=== PATIENT | female | born 1985 | race Caucasian/White ===

== ENCOUNTER 2022-03-18 11:01 | Day surgery (SDC) | payer MEDICAID ==
[~2022-03-18] VITALS: Ht 160 cm; Wt 68.2 kg
[2022-03-18] MEDS ORDERED: fentaNYL/PF 50MCG/1 ML 2ML syringe ONE (11:03)
[2022-03-18] MEDS ORDERED: MIDAZolam 1 MG/ML 5ML VIAL ONE (11:03)
[2022-03-18] MEDS ORDERED: LIDOcaine Viscous 15ml cup ONE ×2 (11:04→11:33)
[2022-03-18 11:14] VITALS: BP 135/87
[2022-03-18] MEDS ORDERED: ALB0.5UD (11:16)
[2022-03-18] MEDS ORDERED: LORA10TA7 PO (11:16)
[2022-03-18] MEDS ORDERED: ALBUTEROL (11:16)
[2022-03-18 12:01] VITALS: BP 123/84
[2022-03-18 12:11] VITALS: BP 127/76
[2022-03-18 12:21] VITALS: BP 140/89
[2022-03-18 12:31] VITALS: BP 121/75
== END 2022-03-18 12:37 | disposition home or self-care (01) ==
LOC: GI LAB 11:01
PROVIDERS: ATTEND Surgery
DX: K44.9 Diaphragmatic hernia without obstruction or gangrene (principal); R11.2 Nausea with vomiting, unspecified; K21.9 Gastro-esophageal reflux disease without esophagitis
CPT/HCPCS: 43235; 99152; J2250; J3010; J7030; Z7512; A4620

== ENCOUNTER 2022-12-14 10:52 | Inpatient (IN) | payer MEDICAID ==
[2022-12-09 11:49] LABS: BASOPHILS % (AUTO) 0.7 % (0-1); EOSINOPHILS # (AUTO) 0.1 X10'3 (0-0.9); EOSINOPHILS % (AUTO) 2.6 % (0-6); LYMPHOCYTES % (AUTO) 21.2 % (21-51); MEAN CORPUSCULAR HEMOGLOBIN 29.5 PG (27.0-31.0); MEAN CORPUSCULAR HGB CONC 33.7 g/dL (33.0-36.5); MEAN CORPUSCULAR VOLUME 87.6 FL (78-98); MEAN PLATELET VOLUME 8.6 FL (7.4-10.4); MONOCYTES # (AUTO) 0.3 X10'3 (0-0.9); MONOCYTES % (AUTO) 6.3 % (2-12); NEUTROPHILS # (AUTO) 3.1 X10'3 (1.8-7.7); NEUTROPHILS % (AUTO) 69.2 % (42-75); PRE OP HEMATOCRIT 39.3 % (35.0-45.0); PRE OP HEMOGLOBIN 13.3 g/dL (12.0-16.0); PRE OP PLATELET COUNT 233 X10'3 (140-440); RED BLOOD COUNT 4.49 X10'6 (4.20-5.60); RED CELL DISTRIBUTION WIDTH 14.1 % (11.5-14.5)
[2022-12-09 12:01] LABS: ALBUMIN 3.8 G/DL (3.4-5.0); ALBUMIN/GLOBULIN RATIO 1.2 (1.1-1.5); ALKALINE PHOSPHATASE 66 IU/L (46-116); BLOOD UREA NITROGEN 14 MG/DL (7-18); BUN/CREATININE RATIO 14.6 (10.0-20.0); CHLORIDE 108 MMOL/L (99-107); CREATININE 0.96 MG/DL (0.40-0.90); PRE OP ALT 23 U/L (30-65); PRE OP ANION GAP 3 (8-16); PRE OP AST 13 U/L (10-37); PRE OP BILIRUB, TOTAL 0.8 MG/DL (0.0-1.0); PRE OP GLUCOSE 75 MG/DL (70-104); PRE OP POTASSIUM 3.9 MMOL/L (3.4-5.1); PRE OP SODIUM 139 MMOL/L (135-145); TOTAL CARBON DIOXIDE 28.3 MMOL/L (24-32); TOTAL PROTEIN 6.9 G/DL (6.4-8.2); eGFR 65 ML/MIN
[2022-12-09 12:15] LABS: HCG SERUM QL NEGATIVE
[~2022-12-14] VITALS: Ht 160 cm; Wt 59.0 kg
[2022-12-14] VITALS (16 sets, daily range): BP systolic 110–135; BP diastolic 66–82
[~2022-12-14 10:52] MED LIST: NO HOME MEDS; clindamycin-Cleocin 900mg/D5W 50 ML IV ONE; famotidine 20mg tablet PO ONE; ringers solution, lacted 1,000 ML IV SCH
[2022-12-14] MEDS ORDERED: proCHLORperazine 10 MG/2 ml inj IV PRN (13:10)
[2022-12-14] MEDS ORDERED: ondansetron/PF 4mg/2ml inj IV PRN ×2 (13:10→19:30)
[2022-12-14] MEDS ORDERED: ringers solution, lacted 1,000 ML IV SCH (13:10)
[2022-12-14] MEDS ORDERED: morphine 2 MG/ML inj. syringe IV PRN (13:10)
[2022-12-14] MEDS ORDERED: morphine 4 MG/ML inj SYRINge IV PRN (13:10)
[2022-12-14] MEDS ORDERED: meperidine/PF 25mg/ml syringe IV PRN ×3 (13:10)
[2022-12-14] MEDS ORDERED: fentaNYL/PF 50MCG/1 ML 2ML syringe ONE ×2 (13:49→18:52)
[2022-12-14] MEDS ORDERED: midazolam 1 mg/ML 2ml injection ONE (13:49)
[2022-12-14] MEDS ORDERED: LIDOcaine 1%/PF 5ML 10 MG/ML VIAL ONE (13:50)
[2022-12-14] MEDS ORDERED: propofol inj 20 ML IV ONE (13:50)
[2022-12-14] MEDS ORDERED: rocuronium 10mg/ml inj IV ONE (13:51)
[2022-12-14] MEDS ORDERED: LIDOcaine 1% 30ml preserv. free vial ONE (17:04)
[2022-12-14] MEDS ORDERED: BUPIVAcaine/PF 2.5 mg/ml (0.25%) 30ml vial ONE (17:04)
[2022-12-14] MEDS ORDERED: dexamethasone sod phosphate 4mg/ml inj. ONE (18:52)
[2022-12-14] MEDS ORDERED: ondansetron/PF 4mg/2ml inj ONE (18:52)
[2022-12-14] MEDS ORDERED: ePHEDrine 50MG/ML INJ. ONE (19:26)
[2022-12-14] MEDS ORDERED: neostigmine methylsulfate 1 MG/ML 10ml vial ONE (19:26)
[2022-12-14] MEDS ORDERED: glycopyrrolate 0.2mg/ml inj ONE (19:26)
--- NOTE | 2022-12-14 19:27 | NUR ---
Received from OR via , accompanied by Anesthesiologist LISSETTE AND OR NURSE and report given by Anesthesiolgist. PT IS DROWSY YET ABLE TO VERBALIZE FEELING NAUSEAS; NADEEM GIVEN. DENIES PAIN OR DISCOMFORT. 4 LAP SITES WITH DERMABOND- ONE PUNCTURE SITE WITH DERMABOND; CDI. CARRIZALES IN PLACE; PATENT. VSS Addendum: 12/14/22 at 2010 by Elizabeth Meeks RN Amended: Links added.
[2022-12-14] MEDS ORDERED: metoclopramide 5 mg/ml inj IV PRN (19:30)
[2022-12-14] MEDS ORDERED: normal saline 1000ml 1,000 ML IV SCH (19:30)
[2022-12-14] MEDS ORDERED: naloxone 0.4 mg/ml inj IV PRN (19:30)
[2022-12-14] MEDS: HYDROmorph/NS 0.2 mg/ml PCA 100 ML IV SCH ×3 (20:24→23:00)
--- NOTE | 2022-12-14 20:45 | NUR ---
Patient in room ORTHO 4020. I have received report from SHELBY Comer and had the opportunity to ask questions and assume patient care.
--- NOTE | 2022-12-14 20:57 | NUR ---
PATIENT TAKEN TO ORTHO FLOOR ROOM WITH ALL BELONGINGS AND HOOKED UP TO ALL MONITORS IN ROOM AND REPORT GIVEN TO RN WHO HAS TAKEN OVER PATIENT CARE. Addendum: 12/14/22 at 2109 by Elizabeth Meeks RN Amended: Links added.
--- NOTE | 2022-12-14 21:00 | NUR ---
pt arrived to floor in bed. settled in. oriented to room. call light in reach.
[2022-12-14] MEDS: heparin, porcine 5000 units/ml vial SQ SCH (23:06)
[2022-12-15 00:45] VITALS: BP 116/73
[2022-12-15] MEDS: HYDROmorph/NS 0.2 mg/ml PCA 100 ML IV SCH ×6 (01:00→11:00)
[2022-12-15 02:00] VITALS: BP 108/67
[2022-12-15] MEDS: normal saline 1000ml 1,000 ML IV SCH ×2 (05:30→08:22)
[2022-12-15 06:00] VITALS: BP 125/80
[2022-12-15 06:08] LABS: ALBUMIN 3.4 G/DL (3.4-5.0); ANION GAP 5 (8-16); BLOOD UREA NITROGEN 10 MG/DL (7-18); BUN/CREATININE RATIO 10.4 (10.0-20.0); CHLORIDE 105 MMOL/L (99-107); CREATININE 0.96 MG/DL (0.40-0.90); GLUCOSE 126 MG/DL (70-104); POTASSIUM 4.3 MMOL/L (3.5-5.1); SODIUM 138 MMOL/L (135-145); TOTAL CARBON DIOXIDE 28.1 MMOL/L (24-32); eGFR 65 ML/MIN
--- NOTE | 2022-12-15 06:51 | NUR ---
Problems reprioritized. Patient report given, questions answered & plan of care reviewed with SHELBY Vazquez.
[2022-12-15] MEDS: heparin, porcine 5000 units/ml vial SQ SCH (07:41)
[2022-12-15 10:00] VITALS: BP 159/93
--- NOTE | 2022-12-15 11:04 | NUR ---
Noted pt s/p OR for Jose Maria fundoplication yesterday per EMR. Pt seen by RD for written/verbal post-Jose Maria diet ed w/ RD contact information and Ens[employer] coupons provided. RD encouraged pt to contact dietitian's office if further nutrition questions/concerns. Dietary notified to not send straws w/ meals. Addendum: 12/15/22 at [address] Amended: Links added.
[2022-12-15] MEDS ORDERED: oxyCODONE/APAP 5-325mg tablet PO PRN (12:20)
[2022-12-15] MEDS ORDERED: PCA WASTE DOCUMENTATION 1 MG ML MC SCH (12:50)
--- NOTE | 2022-12-15 14:33 | NUR ---
Notified Dr. Cline of full liquid diet being tolerated well. Patient's pharmacy [facility] in [place].
[2022-12-15] MEDS ORDERED: PER5325T PO (15:15)
--- NOTE | 2022-12-15 16:32 | NUR ---
Patient was discharged at 1530 with instructions, verbalizing understanding of instructions, in wheelchair accompanied by nursing staff going home via private vehicle. All lines and tubes including PIV with cannula intact have been removed. Education has been provided at bedside and all questions have been answered. Dietary also provided education at bedside and answered all questions. Patient is stable and appropriate for discharge.
== END 2022-12-15 15:55 | disposition home or self-care (01) | DRG 220 ==
LOC: PAS IN 12:01 → ORTHO 4S 21:10
PROVIDERS: ADMIT Surgery; ATTEND Surgery
PROC: 8E0W4CZ Robotic Assisted Procedure of Trunk Region, Percutaneous Endoscopic Approach (ICD-10-PCS; 2022-12-14)
PROC: 0DV44ZZ Restriction of Esophagogastric Junction, Percutaneous Endoscopic Approach (ICD-10-PCS; 2022-12-14)
PROC: 0BUT4JZ Supplement Diaphragm with Synthetic Substitute, Percutaneous Endoscopic Approach (ICD-10-PCS; principal; 2022-12-14 17:10)
DX: K44.9 Diaphragmatic hernia without obstruction or gangrene (principal)
CPT/HCPCS: 36415; 71045; 80048; 80053; 82948; 84703; 85025; 87081; A4618; C1781; G0378; J0780; J1100; J1170; J1644; J2250; J2405; J2704; J2710; J3010; J3490; J7030; J7120